=== PATIENT | female | born 1935 | race Caucasian/White ===

== ENCOUNTER 2016-09-04 09:01 | Outpatient (CLI) | payer MEDICARE, OTHER | END 2016-09-04 09:02 | disposition home or self-care (01) | DX: E78.5 Hyperlipidemia, unspecified (principal); I10 Essential (primary) hypertension; I25.2 Old myocardial infarction; Z95.5 Presence of coronary angioplasty implant and graft; R00.1 Bradycardia, unspecified; I34.0 Nonrheumatic mitral (valve) insufficiency; I45.10 Unspecified right bundle-branch block; Z87.898 Personal history of other specified conditions; G30.8 Other Alzheimer's disease; R26.81 Unsteadiness on feet ==

== ENCOUNTER 2016-11-05 18:01 | Emergency (ER) | payer MEDICARE, OTHER ==
[2016-11-05] MEDS ORDERED: NITROFURANTOIN MACRO 100 MG CAPSULE PO STA (20:05)
[2016-11-05] MEDS ORDERED: NITROFURANTOIN MACRO 100 MG CAPSULE PO ONE (20:10)
== END 2016-11-05 20:36 | disposition home or self-care (01) ==
DX: N39.0 Urinary tract infection, site not specified (principal); F03.90 Unspecified dementia, unspecified severity, without behavioral disturbance, psychotic disturbance, mood disturbance, and anxiety; I10 Essential (primary) hypertension; Z86.73 Personal history of transient ischemic attack (TIA), and cerebral infarction without residual deficits
CPT/HCPCS: 81001; 99283; A9270

== ENCOUNTER 2017-05-20 14:45 | Outpatient (CLI) | payer MEDICARE, OTHER | END 2017-05-20 14:46 | disposition home or self-care (01) | LOC: LAB.R 14:45 | PROVIDERS: ATTEND Family Medicine | DX: N39.0 Urinary tract infection, site not specified (principal) | CPT/HCPCS: 87086 ==

== ENCOUNTER 2017-07-12 16:32 | Outpatient (CLI) | payer MEDICARE, OTHER | END 2017-07-12 16:33 | disposition home or self-care (01) | LOC: LAB.WCP 16:32 | PROVIDERS: ATTEND Physician Assistant Medical | DX: N39.0 Urinary tract infection, site not specified (principal) | CPT/HCPCS: 87086 ==

== ENCOUNTER 2017-11-07 08:00 | Outpatient (CLI) | payer MEDICARE, OTHER | END 2017-11-07 08:01 | disposition home or self-care (01) | LOC: LAB.WCP 08:00 | PROVIDERS: ATTEND Family Medicine | DX: N39.0 Urinary tract infection, site not specified (principal) | CPT/HCPCS: 87086 ==

== ENCOUNTER 2018-10-09 19:58 | Emergency (ER) | payer MEDICARE, OTHER ==
[2018-10-09 20:04] VITALS: BP 132/65
--- NOTE | 2018-10-09 20:05 | ED Physician Documentation ---
PD HPI UPPER EXT INJURY - Stated complaint Stated Complaint: POSSIBLE DISLOCATED SHOULDER - Chief complaint Chief Complaint: Trauma Ext - History obtained from History obtained from: Patient, Family (son) - History of Present Illness Location: Left, Shoulder Type of injury: Twist Where injury occurred: Home Timing - onset: How many hours ago (approximately 2 hours BENEFITS CONSULTING ANALYST) Timing - duration: Hours Timing - details: Abrupt onset Pain level now: 5 Improved by: Rest Worsened by: Moving, Palpating Contributing factors: No: Anticoagulated Similar symptoms before: Has not had sx before Recently seen: Not recently seen - Additonal information Additional information: patient is 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 Son states that approximately 2 hours BENEFITS CONSULTING ANALYST, patient was in bathroom and her left shoulder briefly became caught in a wall-mounted handle. No apparent injury at the time, but eventually she was c/o increasing left shoulder pain, was not moving left shoulder, and son then noticed deformity of the shoulder and thus brought her to ED private vehicle. Review of Systems Skin: reports: Reviewed and negative Musculoskeletal: reports: Joint pain (left shoulder). denies: Neck pain Neurologic: reports: Difficulty speaking (chronic (CVA)). denies: Focal weakness, Numbness, Near syncope, Syncope, Altered mental status, Head injury, LOC PD PAST MEDICAL HISTORY - Past Medical History Cardiovascular: Hypertension Respiratory: None GI: GI bleed : None HEENT: None Musculoskeletal: Other - Past Surgical History Past Surgical History: Yes General: Hiatal hernia repair Ortho: Spine surgery - Present Medications Home Medications: Ambulatory Orders Medication Instructions Recorded Confirmed Metoprolol Succinate 75 mg PO DAILY 11/05/16 11/05/16 Nitrofurantoin Monohyd/M-Cryst 100 mg PO BID #10 capsule 11/05/16 [Macrobid 100 mg Capsule] Ondansetron Odt [Zofran] 4 mg TL Q6H PRN #14 tablet 11/05/16 - Allergies Allergies/Adverse Reactions: Allergies Allergy/AdvReac Type Severity Reaction Status Date / Time losartan [Losartan] Allergy Severe Nausea Verified 10/09/18 20:02 morphine Allergy Severe Respiratory Verified 10/09/18 20:02 nortriptyline [Nortriptyline] Allergy Severe Dizziness Verified 10/09/18 20:02 promethazine HCl * Allergy Severe coma' Verified 10/09/18 20:02 [From Phenergan] rofecoxib [From Vioxx] Allergy Severe Nausea Verified 10/09/18 20:02 rosuvastatin calcium * Allergy Severe palpatation Verified 10/09/18 20:02 [From Crestor] s ciprofloxacin Allergy Intermediate Cramps Verified 10/09/18 20:02 gabapentin [From Neurontin] Allergy Intermediate Headache Verified 10/09/18 20:02 NSAIDS (Non-Steroidal Allergy Intermediate Cramps Verified 10/09/18 20:02 Anti-Inflamma risedronate sodium Allergy Intermediate Rash Verified 10/09/18 20:02 [From Actonel] scopolamine Allergy Intermediate Rash Verified 10/09/18 20:02 amitriptyline [Amitriptyline] Allergy Mild Rash Verified 10/09/18 20:02 cephalexin [Cephalexin] Allergy Mild Nausea Verified 10/09/18 20:02 latex Allergy Mild Rash Verified 10/09/18 20:02 Penicillins Allergy Mild Rash Verified 10/09/18 20:02 sulfamethoxazole Allergy Mild Respiratory Verified 10/09/18 20:02 [From Bactrim] trimethoprim [From Bactrim] Allergy Mild Respiratory Verified 10/09/18 20:02 latanoprost [From Xalatan] Allergy swelling Verified 10/09/18 20:02 Proton Pump Inhibitors AdvReac Intermediate Headache Verified 10/09/18 20:02 antihistamines Allergy Intermediate Rash Uncoded 10/09/18 20:02 topical pain ointments Allergy Intermediate Nausea Uncoded 10/09/18 20:02 dye Allergy unknown Uncoded 10/09/18 20:02 laxatives AdvReac Intermediate Cramps Uncoded 10/09/18 20:02 sun AdvReac Intermediate Rash Uncoded 10/09/18 20:02 vitamins AdvReac unknown Uncoded 10/09/18 20:02 - Social History Does the pt smoke?: No Smoking Status: Never smoker Does the pt drink ETOH?: No Does the pt have substance abuse?: No - Immunizations Immunizations are current?: Yes - POLST Patient has POLST: No PD ED PE NORMAL - Vitals Vital signs reviewed: Yes - General General: No acute distress, Well developed/nourished, Other (awake, alert. nonverbal. follows commands and responds to questions with gestures (nods head, eg)) - HEENT HEENT: Atraumatic, PERRL, EOMI - Neck Neck: Supple, no meningeal sign, No bony TTP PD ED PE EXPANDED - Extremities Extremities: Deformity, Tenderness, Limited ROM, Left shoulder Results - Vitals Vitals: Oxygen O2 Source Room air - Rads (name of study) left shoulder xrays Radiology: Prelim report reviewed, See rad report PD MEDICAL DECISION MAKING - ED course Complexity details: reviewed old records, reviewed results, re-evaluated patient, considered differential, d/w patient, d/w family Departure - Departure Disposition: 01 Home, Self Care Clinical Impression: Shoulder fracture, left Condition: Good Instructions: ED Fx Shoulder, ED Sling Follow-Up: Diamond Rivera MD [Provider Admit Priv/Credential] - Within 1 week Discharge Date/Time: 10/09/18 21:21
--- NOTE | 2018-10-09 20:48 | XRAY Report ---
Reason: injury, deformity Procedure Date: 10/09/2018 Accession Number: [id number] / [id number] Procedure: XR - Shoulder 3 View LT CPT Code: FULL RESULT: EXAM: LEFT SHOULDER RADIOGRAPHY EXAM DATE: 10/09/2018 08:38 PM. CLINICAL HISTORY: Injury, deformity. Left shoulder pain with deformity after falling and catching self with left arm or shower handle. COMPARISON: None. TECHNIQUE: 4 views. FINDINGS: Acute left humeral neck and superior lateral head fracture. The fracture is moderately impacted at the humeral neck. No dislocation. IMPRESSION: Acute left humeral neck and superior lateral head fracture. The fracture is moderately impacted at the humeral neck. No dislocation. [facility]
[2018-10-09] MEDS ORDERED: ACETAMINOPHEN 325 MG TABLET PO STA (21:04)
== END 2018-10-09 21:21 | disposition home or self-care (01) ==
LOC: ED 19:58
DX: S43.005A Unspecified dislocation of left shoulder joint, initial encounter (principal); W23.1XXA Caught, crushed, jammed, or pinched between stationary objects, initial encounter; I10 Essential (primary) hypertension; Z86.73 Personal history of transient ischemic attack (TIA), and cerebral infarction without residual deficits
CPT/HCPCS: 73030; 99283; A9270

== ENCOUNTER 2018-12-09 16:38 | Outpatient (CLI) | payer MEDICARE, OTHER | END 2018-12-09 16:39 | disposition E | LOC: EMS 16:38 | PROVIDERS: ATTEND Surgery ==